=== PATIENT | male | born 1955 | race Caucasian/White ===

== ENCOUNTER 2018-08-29 07:44 | Day surgery (SDC) | payer MEDICARE ==
[2018-08-29] MEDS ORDERED: Sodium Chloride 0.9% 1,000 ML IV SCH (08:45)
[2018-08-29] MEDS ORDERED: Propofol 200 MG/20 ML SDV ONE (09:04)
[2018-08-29] MEDS ORDERED: fentaNYL 100 MCG/2 ML SDV ONE (09:04)
[2018-08-29] MEDS ORDERED: Midazolam 1 MG/ML 2 ML SDV ONE (09:04)
--- NOTE | 2018-08-29 10:50 | OR ---
DATE OF PROCEDURE: 08/29/2018 PROCEDURE PERFORMED: Colonoscopy. FINDINGS: Diverticulosis, mild to moderate, limited to sigmoid colon. PREOPERATIVE DIAGNOSIS: Screening colonoscopy. POSTOPERATIVE DIAGNOSIS: Screening colonoscopy. RISKS: Risks, benefits, alternatives, and limitations including, but not limited to, infection, bleeding, and perforation were explained to the patient and wished to proceed. PROCEDURE IN DETAIL: The patient was placed in left lateral decubitus position. Digital rectal exam was performed without abnormality. The scope was introduced and advanced atraumatically to the ileocecal valve. Photo was taken of this. The scope was brought back to the ascending, transverse, descending colon, and retroflexed. No masses, no polyps. No old or new blood. Diverticulosis described as limited to sigmoid colon only without evidence of diverticulitis. No abnormalities on retroflexion. The patient tolerated the procedure well. Alejandro Mccray MD /[id number]
== END 2018-08-29 11:00 | disposition home or self-care (01) ==
LOC: JP.SDS 07:44
PROVIDERS: ATTEND Surgery
DX: Z12.11 Encounter for screening for malignant neoplasm of colon (principal); K57.30 Diverticulosis of large intestine without perforation or abscess without bleeding
CPT/HCPCS: G0121; J2250; J2704; J3010; J7030